=== PATIENT | male | born 1940 | race Hispanic/Latino ===

== ENCOUNTER 2017-12-13 10:55 | Inpatient (IN) | payer MEDICARE ==
--- NOTE | 2017-12-11 11:09 | Diagnostic Imaging Report ---
PROCEDURE: Frontal and lateral views of the chest. COMPARISON: None. INDICATIONS: PREOPERATIVE CHEST XRAY FOR UROLOGY SURGERY FINDINGS: Lines/tubes: Left chest cardiac device with leads projecting over the expected regions of the right atrium and ventricle. Lungs: The lungs are well inflated and clear. There is no evidence of pneumonia or pulmonary edema. Pleura: There is no pleural effusion or pneumothorax. Heart and mediastinum: The heart and the mediastinum are normal. Bones: No acute bony abnormality. Degenerative changes of the thoracic spine. IMPRESSION: No acute radiographic abnormality. Dictated by: Collin Reyez M.D. on 12/11/2017 at 11:11 Electronically approved by: Collin Reyez M.D. on 12/11/2017 at 11:11
[2017-12-11 11:11] LABS: BASOPHILS % 0.5 % (0.0-1.0); EOSINOPHILS # (AUTO) 0.1 (0.0-0.4); EOSINOPHILS % 1.4 % (0.0-6.0); HEMATOCRIT 34.4 % (38.2-49.6); HEMOGLOBIN 11.8 g/dL (14.0-18.0); LYMPHOCYTES # (AUTO) 1.1 (1.0-3.2); LYMPHOCYTES % 19.6 % (18.0-39.1); MEAN CORPUSCULAR HEMOGLOBIN 31.8 pg (28-32); MEAN CORPUSCULAR HGB CONC 34.3 g/dL (31-35); MEAN CORPUSCULAR VOLUME 92.7 fL (81-99); MONOCYTES # (AUTO) 0.6 (0.2-0.8); MONOCYTES % 11.4 % (4.4-11.3); NEUTROPHILS # (AUTO) 3.6 (2.1-6.9); NEUTROPHILS % 64.1 % (38.7-80.0); PLATELET COUNT 173 x10e3/uL (140-360); RED BLOOD COUNT 3.71 x10e6/uL (4.3-5.7)
[2017-12-11 11:25] LABS: INR 1.14; PROTHROMBIN TIME 13.7 seconds (11.9-14.5)
[2017-12-11 11:26] LABS: PARTIAL THROMBOPLASTIN TIME 26.6 seconds (23.8-35.5)
[2017-12-11 11:34] LABS: ALBUMIN 3.4 g/dL (3.5-5.0); CALCIUM 9.7 mg/dL (8.4-10.2); CREATININE, SERUM 1.21 mg/dL (0.72-1.25)
[~2017-12-13] VITALS: Ht 172.7 cm; Wt 75.7 kg
[~2017-12-13 10:55] MED LIST: ATORVASTATIN CA20 MG PO; FUROSEMIDE40 MG PO; MEGESTROL ACETA40 MG PO; METFORMIN HCL500 M2 PO; POTASSIUM CHLO20 ME1 PO; TOLTERODINE TART2 MG PO; XARELTO20 MG PO
--- OUTSIDE RECORDS SUMMARY | 2017-12-13 10:57 | XMS REPORT ---
Author [facility] Address Unknown Phone Unavailable Care Team Providers Care Patient Relations Coordinator Name Role Phone GÓMEZ SCALES Unavailable Unavailable Problems This patient has no known problems. Allergies, Adverse Reactions, Alerts This patient has no known allergies or adverse reactions. Medications This patient has no known medications. Results Test Description Test Time Test Comments Text Results Atomic Results Result Comments CHEST 2 VIEWS [place] [address] Patient Name: RUBIO HAYNES MR #: [id number] : 1940 Age/Sex: 77/M Req # : [id number] Adm Physician: Ordered by: GÓMEZ SCALES MD Report #: [id number] Location: OR Room/Bed: Procedure: [id number] DX/CHEST 2 VIEWS Exam Date: 12/11/17 Exam Time: 1045 REPORT STATUS: Signed PROCEDURE: Frontal and lateral views of the chest. COMPARISON: None. INDICATIONS: PREOPERATIVE CHEST XRAY FOR UROLOGY SURGERY FINDINGS: Lines/tubes: Left chest cardiac device with leads projecting over the expected regions of the right atrium and ventricle. Lungs: The lungs are well inflated and clear. There is no evidence of pneumonia or pulmonary edema. Pleura: There is no pleural effusion or pneumothorax. Heart and mediastinum: The heart and the mediastinum are normal. Bones: No acute bony abnormality. Degenerative changes of the thoracic spine. IMPRESSION: No acute radiographic abnormality. Dictated by: Chioma Reyez M.D. on 12/11/2017 at 11:11 Electronically approved by: Chioma Reyez M.D. on 12/11/2017 at 11: 11 Dictated By: CHIOMA REYEZ MD 1111 Transcribed By: MARIANNE on 12/11/17 1111 COPY TO : GÓMEZ SCALES MD
[2017-12-13] MEDS ORDERED: CEFOXITIN SOD 1 GM VIAL ONE (11:20)
[2017-12-13] MEDS ORDERED: BELLADONNA/OPIUM 60 MG SUPP PR ONE (12:34)
[2017-12-13] MEDS ORDERED: FENTANYL CITRATE/PF 100MCG/2 ML INJ ONE (13:38)
[2017-12-13] MEDS ORDERED: MORPHINE SULFATE 4 MG/ML SYR IV PRN (14:15)
[2017-12-13] MEDS ORDERED: HYDROCODONE/APAP 7.5MG-325MG 1 EA TAB PO PRN (14:15)
[2017-12-13] MEDS ORDERED: MORPHINE SULFATE 2 MG/ML SYR IV PRN (14:30)
--- NOTE | 2017-12-13 14:35 | Operative Report ---
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 OPERATION PERFORMED: GreenLight photovaporization of the prostate. ANESTHESIA: General. INDICATIONS: This patient is a 77-year-old male who in 2007 had laser surgery on the prostate. The patient did well for many years. He subsequently developed a non-Hodgkin's lymphoma and cardiac arrhythmia. He had insertion of a pacemaker, and he is currently getting chemotherapy. The patient has had several episodes of having problems with urinary retention and extreme difficulties with getting a catheter inserted by his oncologist. When I did a cystoscopy on him in November of 2017, the patient was found to have a tight bladder neck contracture and some regrown prostatic adenoma. For further details, please refer to the history and physical. The procedure was done in the following fashion: DESCRIPTION OF PROCEDURE: The patient was taken to the operating room, placed under general anesthesia, dressed and prepped with Hibiclens in the lithotomy position in the usual fashion. A 22-Lao laser cystoscope was inserted with the visual obturator and 30-degree oblique lens. The sphincter and verumontanum were intact. I ran into a tight bladder neck contracture. The visual obturator was removed. I then inserted the working element with the 12-degree oblique lens. I had the laser initially set at 80 prather for vaporization and 40 prather for coagulation, and started working on the area of the bladder neck contracture. Once I got this area widely opened by cutting in the 12 o'clock position, in the 9 o'clock position, in the 6 o'clock position and in the 3 o'clock position, I could then easily insert the laser cystoscope and inspect the ureteral orifices, which appeared normal. No bladder tumors or bladder stones were identified. There was moderate bladder trabeculation. I came back and now that the bladder neck was wide open and the prostate was more open, I could more easily identify my landmarks. There was a moderate amount of regrown prostatic adenoma. I increased the vaporization to 120 and then worked on the left lateral lobe, the right lateral lobe, the dome of the prostate and the floor of the prostate, taking care to avoid entering the bladder, so all vaporization was done within the prostate, frequently checking where the verumontanum was and where the bladder neck was. At the end of the procedure, the prostatic urethra was wide open, and the verumontanum was intact. The laser cystoscope was then withdrawn. I inserted a 22-Lao, 3-way catheter for continuous bladder irrigation with sterile saline. This was placed on gentle traction. The patient tolerated the procedure well and left the operating room in good condition. Most of the blood loss took place when I inserted the 3-way, and that cleared up quickly with gentle traction. The plan at this time is to admit the patient to the hospital in view of his multiple medical problems. I am consulting Dr. Christ Polanco for medical management. I do not anticipate starting the patient back on the Xarelto until after the catheter has been removed. ADDENDUM: The laser numbers on this thing are that I used a total of [id number] joules. The laser time was 8 minutes 19 seconds. Job#: [id number]
[2017-12-13 15:32] VITALS: BP 114/58
[2017-12-13 15:44] VITALS: BP 114/58
[2017-12-13 15:59] VITALS: BP 117/66
[2017-12-13] MEDS: FUROSEMIDE 40 MG TAB PO SCH (17:31)
[2017-12-13] MEDS: DOCUSATE SODIUM 100 MG CAP PO SCH (17:31)
[2017-12-13] MEDS: POTASSIUM CHLORIDE 20 MEQ TAB CR PO SCH (17:31)
[2017-12-13] MEDS: CEFOXITIN SOD 1 GM VIAL IV SCH ×2 (17:31→23:30)
[2017-12-13] MEDS: METFORMIN HCL 500 MG TAB CR PO SCH (17:31)
[2017-12-13] MEDS ORDERED: CEFOXITIN 1GM/ DEXTROSE 50ML 50 ML IV SCH (18:00)
[2017-12-13] MEDS ORDERED: LIDOCAINE HCL 2% LOCAL INJ 5 ML SDV VIAL INJ ONE (19:15)
[2017-12-13] MEDS ORDERED: ONDANSETRON HCL INJ 2 MG/ML VIAL ONE (19:15)
[2017-12-13] MEDS ORDERED: PROPOFOL IV EMULSION 10 MG/ML 20 ML VIAL ONE (19:15)
[2017-12-13] MEDS ORDERED: SEVOFLURANE INHAL SOLN 250 ML PEN BTL ONE (19:15)
[2017-12-13] MEDS ORDERED: DEXAMETHASONE SOD PHOS INJ 4 MG/ML VIAL ONE (19:15)
[2017-12-13] MEDS: SODIUM CHLORIDE 0.9% 1000ML 1,000 ML IV SCH (19:30)
[2017-12-13 20:00] VITALS: BP 94/53
[2017-12-13] MEDS: MEGESTROL ACETATE 40 MG TAB PO SCH (20:18)
[2017-12-13] MEDS: ATORVASTATIN 20 MG TAB PO SCH (20:18)
[2017-12-14] VITALS (8 sets, daily range): BP systolic 87–115; BP diastolic 50–65
[2017-12-14] MEDS: SODIUM CHLORIDE 0.9% 1000ML 1,000 ML IV SCH ×4 (00:01→23:49)
--- NOTE | 2017-12-14 01:05 | Consultation ---
DATE OF CONSULTATION: MEDICAL CONSULTATION REQUESTING PHYSICIAN: Dr. Pk Velez REASON FOR CONSULTATION: Medical management. CHIEF COMPLAINT: BPH with obstruction. HISTORY OF PRESENT ILLNESS: This is a 77-year-old man with a history of enlarged prostate and associated symptoms, which first started back in October 1997, now worse than even while being on Flomax. The patient has had laser ablation in the past, but continues to have nocturia and frequency. Therefore, he underwent cystoscopy today with Dr. Velez where GreenLight photovaporization of the prostate was performed. Finally, patient is comfortable, resting in bed, in no pain. Denies any chest pain. No shortness of breath. PAST MEDICAL HISTORY: BPH status post laser ablation, non-Hodgkin's lymphoma status post CHOP therapy, urinary tract infection, urinary retention, hyperlipidemia, hypertension, diabetes mellitus type 2, insomnia, systolic congestive heart failure status post AICD placement. PAST SURGICAL HISTORY: AICD placement; cataract surgery; inguinal hernia repair on the right in October of 1996; cardiac arrhythmia, on anticoagulant; obesity. ALLERGIES: PER ELECTRONIC MEDICAL RECORDS. FAMILY HISTORY: Alcoholism in his uncle and brother, diabetes in his mother, heart disease in his grandfather, uncle, and father, hypertension in his mother. SOCIAL HISTORY: Patient is . He has a history of smoking, half a pack of cigarettes per day for 30 years. MEDICATIONS: Per electronic medical record. REVIEW OF SYSTEMS: Denies any chest pain. No shortness of breath. PHYSICAL EXAMINATION: VITAL SIGNS: Have been reviewed. GENERAL APPEARANCE: Tired-appearing man resting in bed. HEENT: Anicteric. CARDIOVASCULAR: Normal S1 and S2. LUNGS: Moderate breath sounds. ABDOMEN: Soft, nontender, nondistended. : He has Sidhu in place with yellow urine and with tinge of blood. EXTREMITIES: No edema. SKIN: Dry. PSYCHIATRIC: Normal affect. LABS: Reviewed. MEDICATIONS: Reviewed. ASSESSMENT AND PLAN: A 77-year-old man. 1. 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 He is status post GreenLight photovaporization of the prostate. 2. Diabetes mellitus type 2. Use a diabetic diet and restart home medication regimen. Obtain hemoglobin A1c and lipid panel. 3. Cardiac arrhythmia. His blood thinners have been on hold. 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 4. Systolic congestive heart failure. He has automatic implantable cardioverter-defibrillator in place. Will monitor for any fluid overload. 5. Hypertension. Will monitor blood pressure while . 6. Hyperlipidemia. Continue statin. 7. Normocytic anemia, mild to moderate. Will follow. 8. Hyperbilirubinemia. Bilirubin is 1.5. His AST and ALT are normal, alkaline phosphatase is also normal. Will recheck bilirubin tomorrow. 9. Prophylaxis. Will use sequential compression devices and Pepcid. 10. Disposition. Follow up hemoglobin and hematocrit in the morning. Follow up laboratories. Monitor fluid status. Job#: [id number]
[2017-12-14] MEDS: CEFOXITIN SOD 1 GM VIAL IV SCH ×4 (05:01→23:49)
[2017-12-14 06:09] LABS: HEMATOCRIT 31.1 % (38.2-49.6); HEMOGLOBIN 10.7 g/dL (14.0-18.0)
[2017-12-14 06:41] LABS: ALBUMIN 2.9 g/dL (3.5-5.0); BILIRUBIN,DIRECT 0.5 mg/dL (0.0-0.5); CHOL/HDL RATIO 2.9 (3.9-4.7)
[2017-12-14] MEDS ORDERED: SODIUM CHLORIDE 0.9% 500ML 500 ML IV ONE (08:00)
[2017-12-14] MEDS: FUROSEMIDE 40 MG TAB PO SCH ×2 (08:19→16:21)
[2017-12-14] MEDS: METFORMIN HCL 500 MG TAB CR PO SCH ×2 (08:31→16:51)
[2017-12-14] MEDS: DOCUSATE SODIUM 100 MG CAP PO SCH ×2 (08:31→16:51)
[2017-12-14] MEDS: FAMOTIDINE 20 MG TAB PO SCH ×2 (08:31→16:51)
[2017-12-14] MEDS: POTASSIUM CHLORIDE 20 MEQ TAB CR PO SCH ×2 (08:31→16:51)
--- NOTE | 2017-12-14 12:25 | Progress Note ---
DATE: December 14, 2017 TIME: 7:40 a.m. OVERNIGHT: No events. No pain. REVIEW OF SYSTEMS: Denies any dizziness. Denies any chest pain. VITAL SIGNS: Reviewed. The blood pressure is low at 93/56. PHYSICAL EXAMINATION GENERAL APPEARANCE: Tired-appearing man resting in bed. HEENT: Anicteric. CARDIOVASCULAR: Normal S1 and S2. LUNGS: Moderate breath sounds. ABDOMEN: Soft, nontender, nondistended. : He has Sidhu in place with yellow urine. EXTREMITIES: No edema. SCDs bilaterally. SKIN: Dry. PSYCHIATRIC: Normal affect. LABS: Reviewed. MEDICATIONS: Reviewed. ASSESSMENT AND PLAN: A 77-year-old man. 1. BPH. 2. Diabetes mellitus, type 2. 3. Cardiac arrhythmia. 4. Systolic congestive heart failure. 5. Hypertension. 6. Hyperlipidemia. 7. Normocytic anemia. 8. Hyperbilirubinemia. 9. Hypotension. PLAN 1. Bolus fluids due to hypotension. 2. Hemoglobin is 7.7 today, a somewhat small trend down from 12/11/2017. 3. Hemoglobin A1c is 5.0, LDL 32, triglycerides 107. 4. Bilirubin is now 1.1, previously 1.5. No longer has hyperbilirubinemia. 5. Discharge planning. Bolus fluids now. Continue cefoxitin. Will hold this morning's dose of Lasix. Job#: [id number]
--- NOTE | 2017-12-14 13:25 | Progress Note ---
DATE: December 14, 2017 UROLOGY PROGRESS NOTE The patient is now 1 day status post GreenLight laser photovaporization for benign prostatic hypertrophy of the prostate and a bladder neck contracture. Patient is afebrile this morning. His hemoglobin is 10.7 and hematocrit 31.1. He states that he feels good. The catheter efflux is clear with a continuous bladder irrigation at a to keep open rate. There is no evidence of epididymitis or deep venous thrombophlebitis. My plan at this time is to remove the catheter in the morning for a trial of voiding. If he is able to urinate tomorrow, I anticipate discharge tomorrow. Job#: [id number]
[2017-12-14] MEDS: MEGESTROL ACETATE 40 MG TAB PO SCH (20:30)
[2017-12-14] MEDS: ATORVASTATIN 20 MG TAB PO SCH (20:30)
[2017-12-15] VITALS: BP 97/52
[2017-12-15 04:00] VITALS: BP 105/56
[2017-12-15] MEDS: CEFOXITIN SOD 1 GM VIAL IV SCH ×2 (05:48→11:48)
[2017-12-15 07:10] VITALS: BP 90/52
[2017-12-15] MEDS: FUROSEMIDE 40 MG TAB PO SCH (08:00)
[2017-12-15] MEDS: DOCUSATE SODIUM 100 MG CAP PO SCH (08:20)
[2017-12-15] MEDS: FAMOTIDINE 20 MG TAB PO SCH (08:20)
[2017-12-15] MEDS: METFORMIN HCL 500 MG TAB CR PO SCH (08:20)
[2017-12-15] MEDS: POTASSIUM CHLORIDE 20 MEQ TAB CR PO SCH (08:20)
[2017-12-15 08:29] VITALS: BP 90/52
[2017-12-15] MEDS: SODIUM CHLORIDE 0.9% 1000ML 1,000 ML IV SCH (10:24)
[2017-12-15] MEDS ORDERED: MACROBID 100 M100 MG PO (12:29)
--- NOTE | 2017-12-15 12:55 | Progress Note ---
DATE: December 15, 2017 DISCHARGE PROGRESS NOTE The Sidhu catheter was removed today. The patient is voiding clear-colored urine. He states his control is greatly improved. He states his stream is dramatically improved. He denies gross hematuria at this time. My plan at this time is to discharge the patient on Macrobid 100 mg p.o. twice daily for 10 days. He will resume his Xarelto. He will have a return appointment to see me again in 2 weeks. Job#: [id number]
--- NOTE | 2017-12-15 23:45 | Discharge Summary ---
DEPARTMENT: Urology. AGE: 77 SEX: Male. CONSULTING PHYSICIAN: Dr. Christ Polanco FINAL DISCHARGE DIAGNOSES 1. Benign prostatic hypertrophy. 2. Bladder neck contracture. OPERATION PERFORMED: GreenLight photovaporization of the prostate, bladder neck contracture. HISTORY OF PRESENT ILLNESS: This patient is a 77-year-old white male on whom I performed a GreenLight photovaporization of prostate back in 2007. The patient did well for many years except when he developed a non-Hodgkin's lymphoma and had been getting intrathecal chemotherapy and also, developed a cardiac arrhythmia and required Xarelto and pacemaker. The plan was to have the patient on Xarelto for 5 days prior to surgery for further details. Please refer to the history and physical. HOSPITAL COURSE: The patient was taken to the operating room on December 13, 2017, at that time, I found a tight bladder neck contracture and prostatic adenoma. A GreenLight photovaporization of the prostate and bladder neck contracture were performed. The patient had minimal blood loss. The patient left the operating room in good condition with a 3-way catheter to continuous bladder irrigation. The catheter was removed on the 2nd postoperative day. The patient reported clear-colored urine with the dramatically improved urinary stream. He states that his urinary control was better. My plan, at this time, is to discharge the patient on Macrobid 100 mg p.o. twice daily for 10 days, who has return appointment to see me again in 2 weeks. GÓMEZ SCALES MD Job#: [id number] CQ
== END 2017-12-15 13:46 | disposition home or self-care (01) | DRG 713 ==
LOC: OR 10:55 → MED/SURG 14:47
PROVIDERS: ADMIT Urology; ATTEND Urology
PROC: 0V508ZZ Destruction of Prostate, Via Natural or Artificial Opening Endoscopic (ICD-10-PCS; principal; 2017-12-13 12:30)
CPT/HCPCS: 36415; 52648; 71046; 80053; 80061; 80076; 82948; 83036; 85014; 85018; 85025; 85610; 85730; J0694; J1100; J2001; J2405; J7030; J7040